=== PATIENT | female | born 1965 | race Two or more races ===

== ENCOUNTER 2016-11-19 09:39 | Day surgery (SDC) | payer OTHER ==
[2016-11-17 13:56] VITALS: BMI 27.4
[~2016-11-19 09:39] MED LIST: LACTATED RINGERS 1,000 ML IV SCH
[2016-11-19] MEDS ORDERED: LIDOCAINE 1% 20 ML VIAL (10MG/ML) FOR IV START SQ ONE (10:00)
[2016-11-19 10:07] VITALS: TEMP 98.8
[2016-11-19] MEDS ORDERED: PROPOFOL 10 MG/ML 20 ML VIAL IV ONE (10:36)
[2016-11-19] MEDS ORDERED: MIDAZOLAM 2 MG/2 ML VIAL ONE (10:36)
--- NOTE | 2016-11-19 10:53 | P.PCN ---
Date of Procedure: 11/19/16 Procedure(s) Performed: BRIEF HISTORY: Patient is a 51-year-old, pleasant, white female, scheduled for an upper endoscopy as a part of surveillance of Ohara's esophagus and GERD. Last upper endoscopy was done in February 2015 and she was noted to have Ohara's esophagus with low-grade dysplasia. She denies any dysphagia or odynophagia. PROCEDURE PERFORMED: Esophagogastroduodenoscopy with biopsy. PREOPERATIVE DIAGNOSIS: Surveillance of Ohara's esophagus. IV sedation per anesthesia. PROCEDURE: After informed consent was obtained, the patient was brought into the endoscopy unit. IV conscious sedation was administered by Anesthesia under continuous monitoring. Initially the Olympus GIF-140 video endoscope was inserted into the mouth. Esophagus intubated without any difficulty. It was gradually advanced into the stomach and duodenum and carefully examined. The bulb and the second part of the duodenum appeared normal. The scope at this time was withdrawn to the stomach, adequately insufflated with air, and upon careful examination, mucosa of the antrum, body, cardia and the fundus appeared normal. The scope was then withdrawn into the esophagus. Small hiatal hernia noted. The GE junction was located at 39 cm from the incisors. There were 2 tongues of Ohara's appearing mucosa extending 2 mm proximal to the GE junction and this was biopsied. The rest of the esophagus appeared normal. There were no erosions or ulcerations seen and the patient tolerated the procedure well. IMPRESSION: 1. 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 2. Small hiatal hernia. RECOMMENDATIONS: The findings of this examination were discussed with the patient as well as her family. She was advised to follow with the biopsy results. She will continue with Prilosec 20 mg daily and follow antireflux measures.If the biopsy does not show any evidence of dysplasia she can have a repeat upper endoscopy in 1-2 years.
[2016-11-19 10:56] VITALS: RESP 18
[2016-11-19 11:41] VITALS: BP 147/88; PULSE 67
== END 2016-11-19 11:41 | disposition home or self-care (01) ==
LOC: ORWHC2ENDO 09:39
PROVIDERS: ATTEND Internal Medicine Gastroenterology
DX: K22.70 Barrett's esophagus without dysplasia (principal); K44.9 Diaphragmatic hernia without obstruction or gangrene; K21.9 Gastro-esophageal reflux disease without esophagitis; Z79.899 Other long term (current) drug therapy; F17.200 Nicotine dependence, unspecified, uncomplicated
CPT/HCPCS: 88305; 43239; J2250; J2704

== ENCOUNTER → 2017-11-26 | Outpatient (CLI) | payer OTHER ==
--- NOTE | 2017-12-01 13:47 | MM ---
Reason for exam: screening (asymptomatic). Baseline mammogram. History: Patient is postmenopausal. Taking estrogen for 8 years beginning at age 44. Taking progesterone for 8 years beginning at age 44. Physical Findings: Nurse did not find any significant physical abnormalities on exam. MG Screening Mammo w CAD Bilateral CC and MLO view(s) were taken. There are scattered fibroglandular densities. No suspicious calcifications or masses are seen. There is no discrete abnormality. Intramammary lymph node on the left. These results were verbally communicated with the patient and result sheet given to the patient on 11/26/17. ASSESSMENT: Benign, BI-RAD 2 RECOMMENDATION: Routine screening mammogram of both breasts in 1 year.
== END | disposition home or self-care (01) ==
LOC: RADMAMWWP 11:00
PROVIDERS: ATTEND Family Medicine
DX: Z12.31 Encounter for screening mammogram for malignant neoplasm of breast (principal)
CPT/HCPCS: 77067

== ENCOUNTER 2019-01-14 08:39 | Day surgery (SDC) | payer OTHER ==
[2019-01-12 16:04] VITALS: BMI 27.4
[~2019-01-14 08:39] MED LIST changes: +LIDOCAINE 1% 20 ML VIAL (10MG/ML) FOR IV START INTRADERMA PRN
[2019-01-14 09:13] VITALS: RESP 16; TEMP 97.2
[2019-01-14] MEDS ORDERED: PROPOFOL 10 MG/ML 20 ML VIAL IV ONE (09:56)
[2019-01-14] MEDS ORDERED: LIDOCAINE 1% INJ 10MG/ML (20 ML MDV) ONE (09:56)
--- NOTE | 2019-01-14 10:06 | P.PCN ---
Date of Procedure: 01/14/19 Procedure(s) Performed: BRIEF HISTORY: Patient is a 53-year-old, pleasant, white female, scheduled for an upper endoscopy as a part of evaluation of long-standing history of GERD and Ohara's esophagus. She is on Prilosec 20 mg daily and continues to have epigastric discomfort almost on a daily basis with intermittent nausea vomiting.. PROCEDURE PERFORMED: Esophagogastroduodenoscopy with biopsy. PREOPERATIVE DIAGNOSIS: GERD/Ohara's esophagus. IV sedation per anesthesia. PROCEDURE: After informed consent was obtained, the patient was brought into the endoscopy unit. IV sedation was administered by Anesthesia under continuous monitoring. Initially the Olympus GIF-140 video endoscope was inserted into the mouth. Esophagus intubated without any difficulty. It was gradually advanced into the stomach and duodenum and carefully examined. The bulb and the second part of the duodenum appeared normal. The scope at this time was withdrawn to the stomach, adequately insufflated with air, and upon careful examination, mucosa of the antrum, body, cardia and the fundus appeared normal. The scope was then withdrawn into the esophagus. The GE junction was located at 36 cm from the incisors. Moderate size L hernia noted. There 2 small tongues of Ohara's appearing mucosa extending to 3 mm proximal to the GE junction and this was biopsied. The rest of the esophagus appeared normal. There were no erosions or ulcerations seen and the patient tolerated the procedure well. IMPRESSION: 1. 2 small tongues of Ohara's appearing mucosa proximal to the GE junction measuring 2-3 mm status post biopsy. 2. Small to moderate size hiatal hernia. RECOMMENDATIONS: The findings of this examination were discussed with the patient as well as a family. She was advised to follow with the biopsy results. She will increase omeprazole to 20 mg twice daily for 4 weeks because of ongoing epigastric pain and intermittent nausea vomiting and see if this helps resolve her symptoms. She can continue with current 20 mg daily for 4 GERD..
[2019-01-14 10:24] VITALS: BP 111/76; PULSE 68
== END 2019-01-14 11:24 | disposition home or self-care (01) ==
LOC: ORWHC2ENDO 08:39
PROVIDERS: ATTEND Internal Medicine Gastroenterology
DX: K22.70 Barrett's esophagus without dysplasia (principal); K21.9 Gastro-esophageal reflux disease without esophagitis; K44.9 Diaphragmatic hernia without obstruction or gangrene; I10 Essential (primary) hypertension; F17.200 Nicotine dependence, unspecified, uncomplicated; Z79.899 Other long term (current) drug therapy
CPT/HCPCS: 88305; 43239; J2001; J2704

== ENCOUNTER 2020-01-09 12:27 | Inpatient (IN) | payer OTHER ==
[2020-01-09] MEDS ORDERED: SODIUM CHLORIDE 0.9% 1,000 ML IV STA (12:40)
[2020-01-09] MEDS ORDERED: MORPHINE SULFATE 4 MG/ML SYRINGE IV STA (12:40)
[2020-01-09] MEDS ORDERED: ONDANSETRON 4 MG/2 ML VIAL IVP STA (12:40)
[2020-01-09] MEDS ORDERED: PANTOPRAZOLE 40 MG/10 ML VIAL IVP STA (12:40)
[2020-01-09] MEDS ORDERED: SODIUM CHLORIDE 0.9% 2,000 ML IV STA (12:40)
--- NOTE | 2020-01-09 12:51 | ED ---
Abdominal Pain HPI - General Source: family, RN notes reviewed, old records reviewed Mode of arrival: wheelchair Limitations: no limitations <Randi Caballero - Last Filed: 01/09/20 14:25> <Luis Marte - Last Filed: 01/09/20 14:32> - General Chief Complaint: Abdominal Pain Stated Complaint: nausea/cramping Time Seen by Provider: 01/09/20 12:34 - History of Present Illness Initial Comments: Patient is a 54-year-old female who presents emergency department today with 36 hours of nausea vomiting abdominal cramping. Patient reports symptoms started after eating a meal Thursday night and having some glasses of wine. Patient is here with her is doing most of the history for Patient she is retching. Patient complains of diffuse cramping. She does a history of Sales's esophagus which she has annual scoped by Dr. Lees. She states that she has had no recorded fevers or chills. She complains of cramping and spasming in her arms and legs likely related to dehydration. (Randi Caballero) - Related Data Home Medications Medication Instructions Recorded Confirmed Estradiol 0.5 mg PO DAILY 11/17/16 01/09/20 Omeprazole 20 mg PO DAILY 11/17/16 01/09/20 Lisinopril-Hctz 20-25 mg 1 tab PO DAILY 01/12/19 01/09/20 [Zestoretic 20-25] Atorvastatin [Lipitor] 10 mg PO HS 01/09/20 01/09/20 Medroxyprogesterone Acetate 5 mg PO DAILY 01/09/20 01/09/20 [Provera] Allergies Allergy/AdvReac Type Severity Reaction Status Date / Time No Known Allergies Allergy Verified 01/09/20 13:54 Review of Systems ROS Other: All systems not noted in ROS Statement are negative. <Randi Caballero - Last Filed: 01/09/20 14:25> ROS Other: All systems not noted in ROS Statement are negative. <Luis Marte - Last Filed: 01/09/20 14:32> ROS Statement: Those systems with pertinent positive or pertinent negative responses have been documented in the HPI. Past Medical History Past Medical History: GERD/Reflux, Hypertension Additional Past Medical History / Comment(s): SALES'S ESOPHAGUS. History of Any Multi-Drug Resistant Organisms: None Reported Past Surgical History: No Surgical Hx Reported Additional Past Surgical History / Comment(s): colonoscopy, egd Past Anesthesia/Blood Transfusion Reactions: No Reported Reaction Past Psychological History: No Psychological Hx Reported Smoking Status: Former smoker Past Alcohol Use History: Occasional Past Drug Use History: Marijuana - Past Family History Father Family Medical History: Cancer Additional Family Medical History / Comment(s): MULTIPLE MELANOMA Sister(s) Family Medical History: Deep Vein Thrombosis (DVT) Additional Family Medical History / Comment(s): BLOOD CLOT IN ARM Brother(s) Family Medical History: Liver Disease Additional Family Medical History / Comment(s): RECENT FROM ESOPHAGEAL VARICES, CIRRHOSIS. <Randi Caballero - Last Filed: 01/09/20 14:25> General Exam Limitations: no limitations General appearance: alert Head exam: Present: atraumatic, normocephalic, normal inspection Eye exam: Present: normal appearance, PERRL, EOMI. Absent: scleral icterus, conjunctival injection, periorbital swelling ENT exam: Present: normal exam, mucous membranes moist Neck exam: Present: normal inspection. Absent: tenderness, meningismus, lymphadenopathy Respiratory exam: Present: normal lung sounds bilaterally. Absent: respiratory distress, wheezes, rales, rhonchi, stridor Cardiovascular Exam: Present: regular rate, normal rhythm, normal heart sounds. Absent: systolic murmur, diastolic murmur, rubs, gallop, clicks GI/Abdominal exam: Present: soft, tenderness (Diffuse abdominal tenderness), n ormal bowel sounds. Absent: distended, guarding, rebound, rigid Extremities exam: Present: normal inspection, full ROM, normal capillary refill. Absent: tenderness, pedal edema, joint swelling, calf tenderness Back exam: Present: normal inspection Neurological exam: Present: alert, oriented X3, CN II-XII intact Psychiatric exam: Present: normal affect, normal mood Skin exam: Present: warm, dry, intact, normal color. Absent: rash <Randi Caballero - Last Filed: 01/09/20 14:25> - General Exam Comments Initial Comments: 54-year-old female. Patient appears in moderate discomfort. Retching. ( Randi Caballero) Course <Luis Marte - Last Filed: 01/09/20 14:32> Vital Signs 01/09/20 12:30 Temperature 98.2 F Pulse Rate 117 H Respiratory 18 Rate Blood Pressure 118/90 O2 Sat by Pulse 98 Oximetry - Reevaluation(s) Reevaluation #1: 01/09/20 14:32 PA supervision: I proceeded [id number] evaluation the patient she did present with complaints of abdominal pain and nausea vomiting going on for about 2 days. She does have evidence on workup of gastritis I CAT scan no other acute findings however she does have acute kidney injury dehydration and lactic acidosis likely on the basis of dehydration. The case is discussed with Dr. Falk patient will be admitted for IV hydration and monitoring of renal function. (Luis Marte) Medical Decision Making - Lab Data Result diagrams: 01/09/20 12:58 01/09/20 12:58 <Randi Caballero - Last Filed: 01/09/20 14:25> - Lab Data Result diagrams: 01/09/20 12:58 01/09/20 12:58 <Luis Marte - Last Filed: 01/09/20 14:32> - Medical Decision Making 54-year-old female with history of present. Presents today for nausea vomiting and retching for the past 36 hours. She also complains of diffuse cramping abdominal pain. Patient was given IV fluids, Zofran and Protonix and morphine for pain. Patient's lab work was reviewed. Evidence of leukocytosis of 21,000. Patient also has significantly decline in her kidney function.With a BUN of 60. Creatinine of 4.92. Her lactic acid is 2.6. Liver function tests are within normal limits. Due to leukocytosis and symptoms Patient had a CT abdomen and pelvis without contrast. There is evidence of some gastritis and cysts were noted on the kidney. Patient was informed of these results. She is feeling better after IV fluids and medication. I discussed the case with Dr. Marte whom discussed with Dr. Falk. At this time we've her lab values are reflective from gastritis, and severe nausea vomiting. After fluids repeat lab work will be completed tomorrow. No need for further consult at this time. (Randi Caballero) - Lab Data Lab Results 01/09/20 01/09/20 01/09/20 Range/Units 12:58 12:58 12:58 WBC 21.9 H (3.8-10.6) k/uL RBC 5.04 (3.80-5.40) m/uL Hgb 16.1 H (11.4-16.0) gm/dL Hct 44.9 (34.0-46.0) % MCV 89.1 (80.0-100.0) fL MCH 32.0 (25.0-35.0) pg MCHC 36.0 (31.0-37.0) g/dL RDW 12.4 (11.5-15.5) % Plt Count 464 H (150-450) k/uL Neutrophils % 89 % Lymphocytes % 7 % Monocytes % 2 % Eosinophils % 1 % Basophils % 0 % Neutrophils # 19.5 H (1.3-7.7) k/uL Lymphocytes # 1.6 (1.0-4.8) k/uL Monocytes # 0.5 (0-1.0) k/uL Eosinophils # 0.2 (0-0.7) k/uL Basophils # 0.0 (0-0.2) k/uL PT 10.2 (9.0-12.0) sec INR 1.0 (<1.2) APTT 22.4 (22.0-30.0) sec Sodium 130 L (137-145) mmol/L Potassium 4.3 (3.5-5.1) mmol/L Chloride 80 L (98-107) mmol/L Carbon Dioxide 21 L (22-30) mmol/L Anion Gap 29 mmol/L BUN 60 H (7-17) mg/dL Creatinine 4.92 H (0.52-1.04) mg/dL Est GFR (CKD-EPI)AfAm 11 (>60 ml/min/1.73 sqM) Est GFR (CKD-EPI)NonAf 9 (>60 ml/min/1.73 sqM) Glucose 154 H (74-99) mg/dL Plasma Lactic Acid Duc (0.7-2.0) mmol/L Calcium 10.9 H (8.4-10.2) mg/dL Magnesium 1.6 (1.6-2.3) mg/dL Total Bilirubin 0.7 (0.2-1.3) mg/dL AST 44 H (14-36) U/L ALT 33 (4-34) U/L Alkaline Phosphatase 102 (38-126) U/L Total Protein 9.8 H (6.3-8.2) g/dL Albumin 6.0 H (3.5-5.0) g/dL Amylase 135 H (30-110) U/L Lipase 121 (23-300) U/L 01/09/20 Range/Units 12:58 WBC (3.8-10.6) k/uL RBC (3.80-5.40) m/uL Hgb (11.4-16.0) gm/dL Hct (34.0-46.0) % MCV (80.0-100.0) fL MCH (25.0-35.0) pg MCHC (31.0-37.0) g/dL RDW (11.5-15.5) % Plt Count (150-450) k/uL Neutrophils % % Lymphocytes % % Monocytes % % Eosinophils % % Basophils % % Neutrophils # (1.3-7.7) k/uL Lymphocytes # (1.0-4.8) k/uL Monocytes # (0-1.0) k/uL Eosinophils # (0-0.7) k/uL Basophils # (0-0.2) k/uL PT (9.0-12.0) sec INR (<1.2) APTT (22.0-30.0) sec Sodium (137-145) mmol/L Potassium (3.5-5.1) mmol/L Chloride (98-107) mmol/L Carbon Dioxide (22-30) mmol/L Anion Gap mmol/L BUN (7-17) mg/dL Creatinine (0.52-1.04) mg/dL Est GFR (CKD-EPI)AfAm (>60 ml/min/1.73 sqM) Est GFR (CKD-EPI)NonAf (>60 ml/min/1.73 sqM) Glucose (74-99) mg/dL Plasma Lactic Acid Duc 2.6 H* (0.7-2.0) mmol/L Calcium (8.4-10.2) mg/dL Magnesium (1.6-2.3) mg/dL Total Bilirubin (0.2-1.3) mg/dL AST (14-36) U/L ALT (4-34) U/L Alkaline Phosphatase (38-126) U/L Total Protein (6.3-8.2) g/dL Albumin (3.5-5.0) g/dL Amylase (30-110) U/L Lipase (23-300) U/L Disposition Is patient prescribed a controlled substance at d/c from ED?: No Time of Disposition: 14:29 <Randi Caballero - Last Filed: 01/09/20 14:25> <Luis Marte - Last Filed: 01/09/20 14:32> Clinical Impression: Gastritis, TAMMY (acute kidney injury), Dehydration, Nausea & vomiting, Leuk ocytosis Disposition: ADMITTED IP TO THIS HOSP Condition: Stable Referrals: Marian Frias III, MD [Primary Care Provider] - 1-2 days
[2020-01-09 13:17] LABS: Basophils % (A) 0 %; Eosinophils # (A) 0.2 k/uL (0-0.7); Eosinophils % (A) 1 %; HCT 44.9 % (34.0-46.0); HGB 16.1 gm/dL (11.4-16.0); Lymphocytes # (A) 1.6 k/uL (1.0-4.8); Lymphocytes % (A) 7 %; MCV 89.1 fL (80.0-100.0); Monocytes # (A) 0.5 k/uL (0-1.0); Monocytes % (A) 2 %; Neutrophils # (A) 19.5 k/uL (1.3-7.7); Neutrophils % (A) 89 %; Platelet Count 464 k/uL (150-450); RBC 5.04 m/uL (3.80-5.40); RDW 12.4 % (11.5-15.5); WBC 21.9 k/uL (3.8-10.6)
[2020-01-09 13:20] LABS: Partial Thromboplastin Time 22.4 sec (22.0-30.0); Prothrombin Time 10.2 sec (9.0-12.0)
[2020-01-09 13:22] LABS: Calcium 10.9 mg/dL (8.4-10.2); Magnesium 1.6 mg/dL (1.6-2.3); Potassium 4.3 mmol/L (3.5-5.1); Total Bilirubin 0.7 mg/dL (0.2-1.3); Total Protein 9.8 g/dL (6.3-8.2)
--- NOTE | 2020-01-09 13:40 | XR ---
EXAMINATION TYPE: XR KUB DATE OF EXAM: 01/09/2020 Comparison: None Clinical History: 54-year-old female abdominal pain Findings: Lung bases are clear. No evidence for free intraperitoneal air. No dilated small bowel or air-fluid levels. Minimal stool burden. Air is present throughout the colon extending distally to the rectum. No suspicious calcifications are seen. Impression: No evidence for free air or bowel obstruction. Minimal stool burden.
--- NOTE | 2020-01-09 14:03 | CT ---
EXAMINATION TYPE: CT abdomen pelvis wo con DATE OF EXAM: 01/09/2020 COMPARISON: Radiograph same day HISTORY: 54-year-old female Abdominal pain, vomiting, renal failure CT DLP: 556.6 mGycm. Automated exposure control for dose reduction was used. TECHNIQUE: Contiguous axial scanning of the abdomen and pelvis without IV contrast. Coronal and sagit mireya reconstructions performed. FINDINGS: LUNG BASES: No significant abnormality is appreciated. LIVER/GB: Liver mildly enlarged at 18.1 cm. There is an 8 mm hypodensity left hepatic dome likely a t iny cyst. Otherwise, noncontrast appearance of the liver and gallbladder show no gross anomaly. PANCREAS: No significant abnormality by noncontrast exam. SPLEEN: No significant abnormality by noncontrast exam. ADRENALS: No significant abnormality by noncontrast exam. KIDNEYS: A benign 2.7 cm cortical cyst right kidney. A couple indeterminate, partially exophytic soft tissue attenuating lesions are present in the left kidney measuring 1.3 cm and 1.1 cm. These warrant follow-up, possible complicated cyst versus small solid masses. BOWEL: No dilated small bowel, free fluid, or free air. There seems to be some fold thickening along the fundus and body of the stomach. Appendix not discretely visualized. No secondary findings of acu te appendicitis in the right lower quadrant. Sigmoid diverticulosis. No pericolonic inflammatory johnson ge. LYMPH NODES: No mesenteric or retroperitoneal lymphadenopathy. Mild atherosclerotic calcifications in frarenal abdominal aorta and common iliac arteries. PELVIS: Nondistention of the bladder limits its evaluation. Uterus is visualized. Suspect visualizati on of small bilateral ovaries. No abnormal fluid collection in the pelvis or pelvic lymphadenopathy. BONES: Degenerative changes at the pubic symphysis and hips. Mild facet arthropathy lower lumbar spin e. IMPRESSION: 1. Moderate fold thickening along the gastric fundus and body. Correlate for possible gastritis. Dir ect visualization as indicated. 2. A couple indeterminate cortical lesion left kidney showing soft tissue attenuation measuring 1.3 and 1.1 cm, complicated cysts versus small solid masses. Three-month follow-up contrast enhanced CT r ecommended to reassess. 3. No nephrolithiasis or hydronephrosis.
[2020-01-09] MEDS ORDERED: Acetaminophen-Codeine 300-30mg TAB PO PRN (14:29)
[2020-01-09] MEDS ORDERED: ACETAMINOPHEN TAB 325 MG TAB PO PRN (14:29)
[2020-01-09] MEDS ORDERED: NALOXONE 0.4 MG/ML 1 ML VIAL IV PRN (14:29)
--- NOTE | 2020-01-09 14:34 | ED ---
Medical Decision Making - Lab Data Result diagrams: 01/09/20 12:58 01/09/20 12:58 Lab Results 01/09/20 01/09/20 01/09/20 Range/Units 12:58 12:58 12:58 WBC 21.9 H (3.8-10.6) k/uL RBC 5.04 (3.80-5.40) m/uL Hgb 16.1 H (11.4-16.0) gm/dL Hct 44.9 (34.0-46.0) % MCV 89.1 (80.0-100.0) fL MCH 32.0 (25.0-35.0) pg MCHC 36.0 (31.0-37.0) g/dL RDW 12.4 (11.5-15.5) % Plt Count 464 H (150-450) k/uL Neutrophils % 89 % Lymphocytes % 7 % Monocytes % 2 % Eosinophils % 1 % Basophils % 0 % Neutrophils # 19.5 H (1.3-7.7) k/uL Lymphocytes # 1.6 (1.0-4.8) k/uL Monocytes # 0.5 (0-1.0) k/uL Eosinophils # 0.2 (0-0.7) k/uL Basophils # 0.0 (0-0.2) k/uL PT 10.2 (9.0-12.0) sec INR 1.0 (<1.2) APTT 22.4 (22.0-30.0) sec Sodium 130 L (137-145) mmol/L Potassium 4.3 (3.5-5.1) mmol/L Chloride 80 L (98-107) mmol/L Carbon Dioxide 21 L (22-30) mmol/L Anion Gap 29 mmol/L BUN 60 H (7-17) mg/dL Creatinine 4.92 H (0.52-1.04) mg/dL Est GFR (CKD-EPI)AfAm 11 (>60 ml/min/1.73 sqM) Est GFR (CKD-EPI)NonAf 9 (>60 ml/min/1.73 sqM) Glucose 154 H (74-99) mg/dL Plasma Lactic Acid Duc (0.7-2.0) mmol/L Calcium 10.9 H (8.4-10.2) mg/dL Magnesium 1.6 (1.6-2.3) mg/dL Total Bilirubin 0.7 (0.2-1.3) mg/dL AST 44 H (14-36) U/L ALT 33 (4-34) U/L Alkaline Phosphatase 102 (38-126) U/L Total Protein 9.8 H (6.3-8.2) g/dL Albumin 6.0 H (3.5-5.0) g/dL Amylase 135 H (30-110) U/L Lipase 121 (23-300) U/L 01/09/20 Range/Units 12:58 WBC (3.8-10.6) k/uL RBC (3.80-5.40) m/uL Hgb (11.4-16.0) gm/dL Hct (34.0-46.0) % MCV (80.0-100.0) fL MCH (25.0-35.0) pg MCHC (31.0-37.0) g/dL RDW (11.5-15.5) % Plt Count (150-450) k/uL Neutrophils % % Lymphocytes % % Monocytes % % Eosinophils % % Basophils % % Neutrophils # (1.3-7.7) k/uL Lymphocytes # (1.0-4.8) k/uL Monocytes # (0-1.0) k/uL Eosinophils # (0-0.7) k/uL Basophils # (0-0.2) k/uL PT (9.0-12.0) sec INR (<1.2) APTT (22.0-30.0) sec Sodium (137-145) mmol/L Potassium (3.5-5.1) mmol/L Chloride (98-107) mmol/L Carbon Dioxide (22-30) mmol/L Anion Gap mmol/L BUN (7-17) mg/dL Creatinine (0.52-1.04) mg/dL Est GFR (CKD-EPI)AfAm (>60 ml/min/1.73 sqM) Est GFR (CKD-EPI)NonAf (>60 ml/min/1.73 sqM) Glucose (74-99) mg/dL Plasma Lactic Acid Duc 2.6 H* (0.7-2.0) mmol/L Calcium (8.4-10.2) mg/dL Magnesium (1.6-2.3) mg/dL Total Bilirubin (0.2-1.3) mg/dL AST (14-36) U/L ALT (4-34) U/L Alkaline Phosphatase (38-126) U/L Total Protein (6.3-8.2) g/dL Albumin (3.5-5.0) g/dL Amylase (30-110) U/L Lipase (23-300) U/L 01/09/20 14:32 EKG performed at 1306 shows sinus tachycardia, otherwise normal EKG. Ventricular rate of 105 beats were minute. Intervals 120 ms. QRS duration 70 ms. QT QTc is 3:30/436 ms. - Radiology Data Radiology results: report reviewed X-ray shows no evidence for free air or bowel obstruction. Minimal stool burn. CT shows moderate full thickening on the gastric fundus and body. The area according for gastritis. Direct visualization as indicated. A couple indeterminate lesions on the left kidney showing soft tissue attenuation measuring 1.3 x 1.1 cm., Located cyst versus small solid masses read follow-up in [address] to reassess. No nephrolithiasis or hydronephrosis. Disposition Clinical Impression: Gastritis, TAMMY (acute kidney injury), Dehydration, Nausea & vomiting, Leukocytosis Disposition: ADMITTED IP TO THIS HOSP Condition: Stable Is patient prescribed a controlled substance at d/c from ED?: No Referrals: Marian Frias III, MD [Primary Care Provider] - 1-2 days
[2020-01-09] MEDS: ONDANSETRON 4 MG/2 ML VIAL IVP PRN ×2 (14:53→23:53)
[2020-01-09] MEDS: SODIUM CHLORIDE 0.9% 1,000 ML IV SCH ×2 (15:36→22:20)
[2020-01-09 18:16] LABS: Appearance,Urine Cloudy (Clear); Bacteria,Urine Rare /hpf; Bilirubin,Urine Negative (Negative); Blood,Urine Moderate (Negative); Color,Urine Yellow; Glucose,Urine (UA) Negative (Negative); Hyaline Casts,Urine 12 /lpf (0-2); Ketones,Urine Negative (Negative); Leukocyte Esterase,Urine Negative (Negative); Mucus,Urine Occasional /hpf; Nitrite,Urine Negative (Negative); PH, Urine 5.5 (5.0-8.0); Protein,Urine 1+ (Negative); RBC,Urine <1 /hpf (0-5); Specific Gravity,Urine 1.014 (1.001-1.035); Squamous Epithelial Cell,Urine 1 /hpf (0-4); Urobilinogen,Urine <2.0 mg/dL (<2.0); WBC,Urine 4 /hpf (0-5)
[2020-01-09] MEDS: ATORVASTATIN 10 MG TAB PO SCH (21:48)
--- NOTE | 2020-01-09 22:39 | P.HPIM ---
History of Present Illness H&P Date: 01/09/20 Chief Complaint: Nausea and vomiting Patient is a 54-year-old female with a known history of Sales's esophagus, GERD, hiatal hernia, hypertension and previous history of smoking came to ER with the complaints of nausea vomiting and epigastric abdominal pain/cramping for the past 36 hours prior to coming to ER.Patient reports symptoms started after eating a meal Thursday night and having some glasses of wine. Patient is having abdominal pain mainly in the epigastric region. No radiation of the pain. Does have nausea and episodes of vomiting. No blood and intermittent emesis. No melena. Denied any diarrhea. No cough or sputum production. No fever no chills. No dysuria or hematuria. She is also complaining of cramping and spasms in her arms and legs. Abdominal x-ray showed no evidence of free air. Minimal stool burden. CT of the abdomen pelvis showed moderate full thickening on the gastric fundus and body. Correlate for gastritis. A couple indeterminate lesions on the left kidney showing soft tissue attenuation measuring 1.3 x 1.1 cm., Located cyst versus small solid masses read follow-up in [address] to reassess. No nephrolithiasis or h ydronephrosis. EKG showed sinus tachycardia. WBC 21.9, sodium 1:30, chloride 80, BUN 60, creatinine 4.92 , lactic acid 2.6 and calcium 10.9 UA negative for infection. Review of Systems Constitutional: Patient denies any fever or chills . No generalized weakness and cramps.. Abdomen: Patient does have nausea vomiting and abdominal pain cramping type. No diarrhea.. Cardiovascular: Patient denies any chest pain or short of breath no palpitations. Respiratory: patient denied any cough is from production. No shortness of breath Neurologic: Patient denied any numbness or tingling headache. Musculoskeletal: Patient denies any complaints of joint swelling or deformity. Skin: Negative Psychiatric: Negative Endocrine: No heat or cold intolerance. No recent weight gain. Genitourinary: No dysuria or hematuria. All other 14 point ROS negative except the above Past Medical History Past Medical History: GERD/Reflux, Hypertension Additional Past Medical History / Comment(s): SALES'S ESOPHAGUS, HIATAL HERNIA, PAST HTN BUT NO LONGER ON MEDICATION SINCE WT LOSS AND QUIT SMOKING. History of Any Multi-Drug Resistant Organisms: None Reported Past Surgical History: No Surgical Hx Reported Additional Past Surgical History / Comment(s): colonoscopy, egds Past Anesthesia/Blood Transfusion Reactions: No Reported Reaction Smoking Status: Former smoker - Past Family History Father Family Medical History: Cancer Additional Family Medical History / Comment(s): MULTIPLE MELANOMA Sister(s) Family Medical History: Deep Vein Thrombosis (DVT) Additional Family Medical History / Comment(s): BLOOD CLOT IN ARM Brother(s) Family Medical History: Liver Disease Additional Family Medical History / Comment(s): TWIN BROTHER FROM ESOPHAGEAL VARICES, CIRRHOSIS. Medications and Allergies Home Medications Medication Instructions Recorded Confirmed Type Estradiol 0.5 mg PO DAILY 11/17/16 01/09/20 History Omeprazole 20 mg PO DAILY 11/17/16 01/09/20 History Lisinopril-Hctz 20-25 mg 1 tab PO DAILY 01/12/19 01/09/20 History [Zestoretic 20-25] Atorvastatin [Lipitor] 10 mg PO HS 01/09/20 01/09/20 History Medroxyprogesterone Acetate 5 mg PO DAILY 01/09/20 01/09/20 History [Provera] Allergies Allergy/AdvReac Type Severity Reaction Status Date / Time No Known Allergies Allergy Verified 01/09/20 13:54 Physical Exam Vitals: Vital Signs Temp Pulse Pulse Resp BP BP Pulse Ox 01/09/20 16:00 16 01/09/20 15:20 98.4 F 92 16 129/84 99 01/09/20 14:47 99.2 F 97 18 126/75 99 01/09/20 12:30 98.2 F 117 H 18 118/90 98 Intake and Output 01/09/20 01/09/20 01/09/20 06:59 14:59 22:59 Intake Total 1180 Balance 1180 Intake: Oral 1180 Other: Voiding Method Toilet # Voids 2 Weight 72.575 kg 72.575 kg PHYSICAL EXAMINATION: Patient is lying in the bed comfortably, no acute distress, awake alert and oriented.. HEENT: Normocephalic. Neck is supple. Pupils reactive. Nostrils clear. Oral cavity is moist. Ears reveal no drainage. Neck reveals no JVD, carotid bruits, or thyromegaly. CHEST EXAMINATION: Trachea is central. Symmetrical expansion. Lung christensen clear to auscultation and percussion. CARDIAC: Normal S1, S2 with no gallops. No murmurs ABDOMEN: Soft. Mild epigastric tenderness. Bowel sounds normal. No organomegaly. No abdominal bruits. Extremities: reveal no edema. No clubbing or cyanosis Neurologically awake, alert, oriented x3 with well-coordinated movements. No focal deficits noted Skin: No rash or skin lesions. Psychiatric: Coperative. Nonsuicidal Musculoskeletal: No joint swelling or deformity. Normal range of motion. Results CBC & Chem 7: 01/09/20 12:58 01/09/20 12:58 Labs: Abnormal Lab Results - Last 24 Hours (Table) 01/09/20 01/09/20 01/09/20 Range/Units 12:58 12:58 12:58 WBC 21.9 H (3.8-10.6) k/uL Hgb 16.1 H (11.4-16.0) gm/dL Plt Count 464 H (150-450) k/uL Neutrophils # 19.5 H (1.3-7.7) k/uL Sodium 130 L (137-145) mmol/L Chloride 80 L (98-107) mmol/L Carbon Dioxide 21 L (22-30) mmol/L BUN 60 H (7-17) mg/dL Creatinine 4.92 H (0.52-1.04) mg/dL Glucose 154 H (74-99) mg/dL Plasma Lactic Acid Duc 2.6 H* (0.7-2.0) mmol/L Calcium 10.9 H (8.4-10.2) mg/dL AST 44 H (14-36) U/L Total Protein 9.8 H (6.3-8.2) g/dL Albumin 6.0 H (3.5-5.0) g/dL Amylase 135 H (30-110) U/L Urine Appearance (Clear) Urine Protein (Negative) Urine Blood (Negative) Urine Bacteria (None) /hpf Hyaline Casts (0-2) /lpf Urine Mucus (None) /hpf 01/09/20 01/09/20 Range/Units 17:05 17:45 WBC (3.8-10.6) k/uL Hgb (11.4-16.0) gm/dL Plt Count (150-450) k/uL Neutrophils # (1.3-7.7) k/uL Sodium (137-145) mmol/L Chloride (98-107) mmol/L Carbon Dioxide (22-30) mmol/L BUN (7-17) mg/dL Creatinine (0.52-1.04) mg/dL Glucose (74-99) mg/dL Plasma Lactic Acid Duc 0.6 L (0.7-2.0) mmol/L Calcium (8.4-10.2) mg/dL AST (14-36) U/L Total Protein (6.3-8.2) g/dL Albumin (3.5-5.0) g/dL Amylase (30-110) U/L Urine Appearance Cloudy H (Clear) Urine Protein 1+ H (Negative) Urine Blood Moderate H (Negative) Urine Bacteria Rare H (None) /hpf Hyaline Casts 12 H (0-2) /lpf Urine Mucus Occasional H (None) /hpf Thrombosis Risk Factor Assmnt - DVT/VTE Prophylaxis DVT/VTE Prophylaxis: Pharmacologic Prophylaxis ordered - Choose All That Apply Any of the Below Risk Factors Present?: Yes Each Factor Represents 1 point: Age 41-60 years, Obesity (BMI >25) Other Risk Factors: No Other congenital or acquired thrombophilia - If yes, enter type in comment: No Thrombosis Risk Factor Assessment Total Risk Factor Score: 2 Thrombosis Risk Factor Assessment Level: Low Risk Assessment and Plan Assessment: Intractable nausea vomiting and abdominal pain secondary to acute severe gastritis Acute kidney injury was likely prerenal possible ATN Hypovolemic hyponatremia Leukocytosis likely reactive. Rule out infection. Lactic acidosis secondary to tissue hypoperfusion improved now Mild hypercalcemia due to dehydration History of hypertension History of Sales's esophagus and GERD Hiatal hernia Previous history of smoking DVT prophylaxis Plan: Patient will be continued on IV Protonix and symptomatic management for nausea and vomiting. Continue with IV hydration and follow-up renal function tomorrow. Further recommendations based on the clinical course. Continue to follow closely. Time with Patient: Greater than 30
[2020-01-10] MEDS: MORPHINE SULFATE 4 MG/ML SYRINGE IV PRN ×2 (05:34→13:14)
[2020-01-10] MEDS: SODIUM CHLORIDE 0.9% 1,000 ML IV SCH ×3 (06:05→20:58)
[2020-01-10 07:13] LABS: Calcium 9.1 mg/dL (8.4-10.2); Potassium 3.9 mmol/L (3.5-5.1)
[2020-01-10 07:40] LABS: Basophils % (A) 0 %; Eosinophils % (A) 0 %; HCT 37.2 % (34.0-46.0); Lymphocytes # (A) 1.6 k/uL (1.0-4.8); Lymphocytes % (A) 11 %; MCH 31.9 pg (25.0-35.0); MCHC 34.6 g/dL (31.0-37.0); MCV 92.3 fL (80.0-100.0); Mean Platelet Volume 7.9; Monocytes # (A) 0.6 k/uL (0-1.0); Monocytes % (A) 4 %; Neutrophils # (A) 11.5 k/uL (1.3-7.7); Neutrophils % (A) 83 %; Platelet Count 274 k/uL (150-450); RBC 4.03 m/uL (3.80-5.40); RDW 12.4 % (11.5-15.5); WBC 13.8 k/uL (3.8-10.6)
[2020-01-10 07:50] LABS: HGB 12.9 gm/dL (11.4-16.0)
[2020-01-10] MEDS: ESTRADIOL 0.5 MG TAB PO SCH (08:27)
[2020-01-10] MEDS ORDERED: PANTOPRAZOLE 40 MG/10 ML VIAL IV SCH (09:00)
[2020-01-10] MEDS ORDERED: LISINOPRIL-HCTZ 20-25 MG 1 EACH TAB PO SCH (09:00)
--- NOTE | 2020-01-10 09:03 | US ---
EXAMINATION TYPE: US kidneys/renal and bladder DATE OF EXAM: 01/10/2020 COMPARISON: NONE CLINICAL HISTORY: 54-year-old female TAMMY. TECHNIQUE: Multiple sonographic images of the kidneys and bladder are obtained. FINDINGS: EXAM MEASUREMENTS: Right Kidney: 10.3 x 4.6 x 5.4 cm Left Kidney: 10.2 x 5.3 x 4.5 cm Right Kidney: inferior cyst measuring 2.5 x 2.2 x 2.2cm Left Kidney: 2 probable exophytic cysts in the lower pole measuring 1.1 and 1.0 cm. The saved images show a rounded 2.8 cm isodense area at the mid pole, either prominent cortical tissue or mass. No hydronephrosis on either side. Bladder: Underdistention limits its evaluation. Bilateral Jets seen: No IMPRESSION: 1. No hydronephrosis. 2. Either a column of Todd versus a 2.8 cm solid mass within the midpole of the left kidney. Not ap parent on the recent noncontrast CT. 3 month follow-up contrast enhanced CT recommended to assess thi s region. 3. The other lesions seen on CT are compatible with benign cysts.
[2020-01-10 14:51] VITALS: BMI 28.1
[2020-01-10] MEDS: ATORVASTATIN 10 MG TAB PO SCH (20:57)
[2020-01-10] MEDS: PANTOPRAZOLE 40 MG/10 ML VIAL IV SCH (20:58)
[2020-01-10] MEDS: ONDANSETRON 4 MG/2 ML VIAL IVP PRN (21:01)
[2020-01-11] MEDS: SODIUM CHLORIDE 0.9% 1,000 ML IV SCH ×2 (05:16→15:18)
[2020-01-11] MEDS: ESTRADIOL 0.5 MG TAB PO SCH (08:44)
[2020-01-11] MEDS: PANTOPRAZOLE 40 MG/10 ML VIAL IV SCH (08:44)
[2020-01-11] MEDS: ONDANSETRON 4 MG/2 ML VIAL IVP PRN (09:38)
[2020-01-11 12:44] VITALS: BP 138/78; PULSE 72; RESP 16; TEMP 98.8
--- NOTE | 2020-01-12 08:43 | CDI ---
Documentation Clarification Form Date: 01/12/2020 08:27:21 AM From: Alize Almendarez Phone: If you have a question about this query, please contact Ana Vela [facility] at [phone] between 8am and 5pm. Admit Date: 01/09/2020 02:20:00 PM Patient Name: Maria G Lam Visit Number: [id number] Discharge Date: 01/11/2020 03:22:00 PM ATTENTION: The Clinical Documentation Specialists (CDI) and [facility] Coding Staff appreciate your assistance in clarifying documentation. Please respond to the clarification below the line at the bottom and electronically sign. The CDI & [facility] Coding staff will review the response and follow-up if needed. Please note: Queries are made part of the Legal Health Record. If you have any questions, please contact the author of this message via ITS. Dr. Deepali Falk Acute kidney injury was likely prerenal possible ATN was documented in the H and P. No documentation to follow please clarify if at time of discharge ATN was possible. History/Risk Factors: dehydrated, elevated lactic acidosis, hypercalcemia Patients baseline BUN/CR/GFR: 60 4.92 GFR on admit 9 Clinical Indicators: dehyration Current BUN/Cr/GFR: 01/09 BUN 37 Creat 1.64 GFR 35 Treatment: IV hydration and follow up of renal functio In order to capture the severity of condition, please clarify if the condition signifies: Acute renal failure, Please specify etiology (if known): Cortical Necrosis Medullary Necrosis Tubular Necrosis Acute kidney injury Other please specify Unable to determine Acute kidney injury MTDD
== END 2020-01-11 15:22 | disposition home or self-care (01) | DRG 392 ==
LOC: EC 12:27 → 6NMEDSUR 14:20
PROVIDERS: ADMIT Internal Medicine; ATTEND Internal Medicine
DX: K29.00 Acute gastritis without bleeding (principal); E87.2 Acidosis; N17.9 Acute kidney failure, unspecified; E87.1 Hypo-osmolality and hyponatremia; K44.9 Diaphragmatic hernia without obstruction or gangrene; D72.829 Elevated white blood cell count, unspecified; E83.52 Hypercalcemia; E86.0 Dehydration; I10 Essential (primary) hypertension; K22.70 Barrett's esophagus without dysplasia; Z79.899 Other long term (current) drug therapy; Z80.8 Family history of malignant neoplasm of other organs or systems; Z87.891 Personal history of nicotine dependence; Z80.7 Family history of other malignant neoplasms of lymphoid, hematopoietic and related tissues; Z83.2 Family history of diseases of the blood and blood-forming organs and certain disorders involving the immune mechanism; Z83.79 Family history of other diseases of the digestive system
CPT/HCPCS: 36415; 74018; 74176; 76770; 80048; 80053; 81001; 82150; 83605; 83690; 83735; 85025; 85610; 85730; 93005; 96361; 96374; 96375; 96376; 99285

== ENCOUNTER → 2020-07-27 | Outpatient (CLI) | payer OTHER ==
--- NOTE | 2020-07-27 17:08 | CT ---
EXAMINATION TYPE: CT abdomen w con DATE OF EXAM: 07/27/2020 COMPARISON: CT abdomen pelvis 01/09/2020. Ultrasound kidneys 01/10/2020. HISTORY: Abnormal CT findings CT DLP: 770.6 mGycm Automated exposure control for dose reduction was used. TECHNIQUE: Helical acquisition of images was performed from the lung bases through the top of iliac crest to include entire abdomen. CONTRAST: Performed with Oral Contrast and with IV Contrast, patient injected with 100 mL of Isovue 300. FINDINGS: LUNG BASES: Normal. LIVER: Too small to characterize hypodense lesion at the dome (3:8). BILIARY SYSTEM: Normal. PANCREAS: Normal. SPLEEN: Normal. ADRENALS: Normal. KIDNEYS: Bilateral renal cysts redemonstrated. No evidence of solid renal mass. No hydronephrosis. BOWEL: No obstruction or thickening. PERITONEUM: No pneumoperitoneum. No free fluid. LYMPH NODES: No lymphadenopathy. VASCULATURE: No abdominal aortic aneurysm. MUSCULOSKELETAL: Degenerative changes of the spine. IMPRESSION: Unchanged bilateral renal simple cysts. Questioned findings on 12/31/2019 renal ultrasound represent violeta Holland. No evidence of solid renal mass.
== END | disposition home or self-care (01) ==
LOC: RADCTMAIN 14:28
PROVIDERS: ATTEND Nurse Practitioner Family
DX: N28.1 Cyst of kidney, acquired (principal)
CPT/HCPCS: 74160; Q9967

== ENCOUNTER 2022-01-03 11:47 | Day surgery (SDC) | payer OTHER ==
[2022-01-02 14:09] VITALS: BMI 26.6
[~2022-01-03 11:47] MED LIST changes: +LIDOCAINE 1% (10MG/ML) FOR IV START INTRADERMA PRN; -LIDOCAINE 1% 20 ML VIAL (10MG/ML) FOR IV START INTRADERMA PRN
[2022-01-03 12:32] VITALS: TEMP 99.6
[2022-01-03] MEDS ORDERED: LIDOCAINE 1% INJ 10MG/ML (20 ML MDV) ONE (13:36)
[2022-01-03] MEDS ORDERED: PROPOFOL 10 MG/ML 20 ML VIAL IV ONE (13:36)
--- NOTE | 2022-01-03 14:01 | P.PCN ---
Date of Procedure: 01/03/22 Procedure(s) Performed: Brief history: Patient is a pleasant 56-year-old white female scheduled for an elective upper endoscopy as well as colonoscopy as a part of evaluation of GERD/Ohara's esophagus and screening for colon cancer. Procedure performed: Esophagogastroduodenoscopy with biopsy Colonoscopy with snare polypectomy Preoperative diagnosis: GERD/Ohara's esophagus Screening for colon cancer Anesthesia: MAC Procedure: After informed consent was obtained from the patient was brought into the endoscopy unit and IV sedation was administered by anesthesia under continuous monitoring. Initially upper endoscopy was done. The Olympus GF 160 video endoscope was inserted inserted into the mouth and esophagus intubated without any difficulty and was gradually advanced into the stomach and duodenum and carefully examined. The bulb and second part of the duodenum appeared normal. The scope was then withdrawn into the stomach adequately insufflated with air and upon careful examination the antrum and body, cardia and fundus appeared normal. The scope was then withdrawn into the esophagus. The GE junction was located at 37 cm to the incisors. It appeared regular with no erythema erosions or ulcerations. He was a short segment of Ohara's esophagus extending 3-5 mm proximal to the GE junction which was biopsied. Small hiatal hernia noted. Rest of the esophagus appeared normal. Patient tolerated the procedure well. At this time the patient continued to remain sedation. Initial digital rectal examination was normal. Olympus CF 160 video colonoscope was then inserted into the rectum and gradually advanced to the cecum without any difficulty. Careful examination was performed as the scope was gradually being withdrawn. The prep was excellent. The cecum, ascending colon, transverse colon, normal. In the descending colon there was a 7 mm polyp removed by snare polypectomy. Rest of the descending colon, sigmoid colon and rectum appeared normal. Retroflexion was performed in the rectum and no lesions were noted. Patient tolerated the procedure well. Impression: 1. Upper endoscopy revealed small hiatal hernia and short segment Ohara's esophagus 2. Colonoscopy revealed a 7 mm polyp in the descending colon status post snare polypectomy and the rest of the colon appeared normal. Recommendations: Findings of this examination were discussed with the patient as well her family. She was advised to follow with the biopsy results. If the biopsy confirms the presence of Ohara's esophagus he can have a repeat upper endoscopy in 3 years. And repeat colonoscopy in 5 years.
[2022-01-03 15:02] VITALS: BP 144/89; PULSE 68; RESP 18
== END 2022-01-03 14:58 | disposition home or self-care (01) ==
LOC: ORWHC2ENDO 11:47
PROVIDERS: ATTEND Internal Medicine Gastroenterology
DX: Z12.11 Encounter for screening for malignant neoplasm of colon (principal); K63.5 Polyp of colon; K22.70 Barrett's esophagus without dysplasia; K21.9 Gastro-esophageal reflux disease without esophagitis; K44.9 Diaphragmatic hernia without obstruction or gangrene; I10 Essential (primary) hypertension; E78.5 Hyperlipidemia, unspecified; Z79.899 Other long term (current) drug therapy; Z79.890 Hormone replacement therapy; Z87.891 Personal history of nicotine dependence
CPT/HCPCS: 88305; 45385; 43239; J2001; J2704

== ENCOUNTER → 2022-01-21 | Outpatient (CLI) | payer OTHER ==
--- NOTE | 2022-01-22 09:53 | MM ---
Reason for exam: additional evaluation requested from abnormal screening. Last mammogram was performed less than 1 month ago. History: Patient is postmenopausal. Taking estrogen for 13 years beginning at age 44. Taking progesterone for 13 years beginning at age 44. Physical Findings: A clinical breast exam by your physician is recommended on an annual basis and results should be correlated with mammographic findings. MG Work Up Mamm w CAD RT Spot compression CC, spot compression MLO, and LM view(s) were taken of the right breast. Prior study comparison: January 10, 2022, bilateral MG screening mammo w CAD. November 26, 2017, bilateral MG screening mammo w CAD. There are scattered fibroglandular densities. The subareolar focal asymmetry disperses on additional views. No persisting abnormality. ASSESSMENT: Benign, BI-RAD 2 RECOMMENDATION: Return to routine screening mammogram schedule for both breasts.
== END | disposition home or self-care (01) ==
LOC: RADMAMWWP 14:52
PROVIDERS: ATTEND Family Medicine
DX: R92.8 Other abnormal and inconclusive findings on diagnostic imaging of breast (principal); Z78.0 Asymptomatic menopausal state
CPT/HCPCS: 77065

== ENCOUNTER 2022-02-24 09:29 | Observation (INO) | payer OTHER ==
[2022-02-24] MEDS ORDERED: ONDANSETRON 4 MG/2 ML VIAL IVP STA (10:06)
[2022-02-24] MEDS ORDERED: SODIUM CHLORIDE 0.9% 1,000 ML IV STA ×2 (10:06→11:14)
[2022-02-24 10:38] LABS: Basophils % (A) 0 %; Eosinophils # (A) 0.2 k/uL (0-0.7); Eosinophils % (A) 1 %; HGB 16.2 gm/dL (11.4-16.0); Lymphocytes # (A) 0.8 k/uL (1.0-4.8); Lymphocytes % (A) 4 %; MCH 32.4 pg (25.0-35.0); MCHC 34.5 g/dL (31.0-37.0); MCV 94.1 fL (80.0-100.0); Mean Platelet Volume 8.1; Monocytes # (A) 0.2 k/uL (0-1.0); Monocytes % (A) 1 %; Neutrophils # (A) 16.9 k/uL (1.3-7.7); Neutrophils % (A) 93 %; Platelet Count 410 k/uL (150-450); WBC 18.2 k/uL (3.8-10.6)
[2022-02-24 10:50] LABS: Albumin 5.9 g/dL (3.5-5.0); Calcium 11.7 mg/dL (8.4-10.2); Potassium 3.9 mmol/L (3.5-5.1); Total Bilirubin 0.8 mg/dL (0.2-1.3); Total Protein 10.1 g/dL (6.3-8.2)
--- NOTE | 2022-02-24 10:50 | ED ---
Nausea/Vomiting/Diarrhea HPI - General Chief complaint: Nausea/Vomiting/Diarrhea Stated complaint: Vomiting,Weakness Time Seen by Provider: 02/24/22 10:03 Source: patient, family, RN notes reviewed Mode of arrival: wheelchair Limitations: no limitations - History of Present Illness Initial comments: This is a 56-year-old female who presents to the emergency department for nausea, vomiting, leg cramps, and abdominal pain. Nausea and vomiting began 12 hours ago. She then developed abdominal pain, which she believes is secondary to the vomiting. She has also developed cramping in the lower extremities which she attributes to dehydration. She also reports associated epigastric pain. She had an EGD with Dr. Benjamin 3 months ago, and states that other than the chronic GERD and Sales's esophagus, they have not found a cause for her persistent epigastric pain and recurrent episodes of nausea and vomiting. Patient denies any fevers, chills, sore throat, visual changes, cough, dyspnea, chest pain, palpitations, diarrhea, constipation, dysuria, hematuria, back pain, headaches, or weakness. MD complaint: nausea, vomiting, abdominal pain Onset/Timin -: hour(s) Associated Abdominal Pain: Yes - Related Data Home Medications Medication Instructions Recorded Confirmed Estradiol 0.5 mg PO DAILY 11/17/16 02/24/22 Omeprazole 20 mg PO DAILY 11/17/16 02/24/22 Medroxyprogesterone Acetate 5 mg PO DAILY 01/09/20 02/24/22 [Provera] Atorvastatin [Lipitor] 20 mg PO HS 11/24/21 02/24/22 Ergocalciferol [Vitamin D2 (1250 1,250 mcg PO WE 11/24/21 02/24/22 Mcg = 47154 Iu)] Lisinopril-Hctz 20-12.5 mg 1 tab PO HS 11/24/21 02/24/22 [Zestoretic 20-12.5] Allergies Allergy/AdvReac Type Severity Reaction Status Date / Time No Known Allergies Allergy Verified 02/24/22 15:24 Review of Systems ROS Statement: Those systems with pertinent positive or pertinent negative responses have been documented in the HPI. ROS Other: All systems not noted in ROS Statement are negative. Past Medical History Past Medical History: GERD/Reflux, Hypertension Additional Past Medical History / Comment(s): SALES'S ESOPHAGUS, HIATAL HERNIA History of Any Multi-Drug Resistant Organisms: None Reported Past Surgical History: No Surgical Hx Reported Additional Past Surgical History / Comment(s): colonoscopy, egds Past Anesthesia/Blood Transfusion Reactions: No Reported Reaction Past Psychological History: No Psychological Hx Reported Smoking Status: Former smoker - Past Family History Father Family Medical History: Cancer Additional Family Medical History / Comment(s): MELANOMA Sister(s) Family Medical History: Deep Vein Thrombosis (DVT) Additional Family Medical History / Comment(s): BLOOD CLOT IN ARM Brother(s) Family Medical History: Liver Disease Additional Family Medical History / Comment(s): TWIN BROTHER FROM ESOPHAGEAL VARICES, CIRRHOSIS,Crohn's General Exam Limitations: no limitations General appearance: alert, in distress Head exam: Present: atraumatic, normocephalic, normal inspection Respiratory exam: Present: normal lung sounds bilaterally. Absent: respiratory distress, wheezes, rales, rhonchi, stridor Cardiovascular Exam: Present: regular rate, normal rhythm, normal heart sounds. Absent: systolic murmur, diastolic murmur, rubs, gallop, clicks Neurological exam: Present: alert, oriented X3, CN II-XII intact Psychiatric exam: Present: normal affect, normal mood Skin exam: Present: warm, dry, intact, normal color. Absent: rash Course Vital Signs 02/24/22 02/24/22 02/24/22 09:42 10:06 13:00 Temperature 98.7 F Pulse Rate 107 H 88 Respiratory 18 18 Rate Blood Pressure 96/68 160/96 O2 Sat by Pulse 98 100 Oximetry 02/24/22 16:00 Temperature Pulse Rate 96 Respiratory 16 Rate Blood Pressure 147/95 O2 Sat by Pulse 98 Oximetry Medical Decision Making - Medical Decision Making This is a 56-year-old female who presents emergency department for nausea and vomiting. Lab work reveals an elevated lactic acid of 3.5, elevated hemoglobin of 16.2, and an elevated white blood cell count of 18.2, all of which may be due to dehydration. Patient also has an TAMMY, also likely secondary to dehydration. She had a very similar presentation in the emergency department 3 months ago, and was rehydrated with 2L of normal saline and was able to be discharged. The plan is for a similar treatment mechanism, patient will be rehydrated with 2 L bolus of normal saline, as well as given Zofran for nausea and vomiting and Pepcid. After receiving fluids and the medication, she tried to eat a popsicle and began vomiting again. Given the intractable nausea and vomiting associated with the TAMMY, will plan to admit the patient for observation. This case was discussed in detail with the attending ED physician. Presentation, findings, and treatment plan discussed in detail as well. - Lab Data Result diagrams: 02/24/22 10:02/24/22 10: Lab Results 02/24/22 02/24/22 02/24/22 Range/Units 10: 10: 10: WBC 18.2 H (3.8-10.6) k/uL RBC 5.00 (3.80-5.40) m/uL Hgb 16.2 H (11.4-16.0) gm/dL Hct 47.0 H (34.0-46.0) % MCV 94.1 (80.0-100.0) fL MCH 32.4 (25.0-35.0) pg MCHC 34.5 (31.0-37.0) g/dL RDW 12.0 (11.5-15.5) % Plt Count 410 (150-450) k/uL MPV 8.1 Neutrophils % 93 % Lymphocytes % 4 % Monocytes % 1 % Eosinophils % 1 % Basophils % 0 % Neutrophils # 16.9 H (1.3-7.7) k/uL Lymphocytes # 0.8 L (1.0-4.8) k/uL Monocytes # 0.2 (0-1.0) k/uL Eosinophils # 0.2 (0-0.7) k/uL Basophils # 0.0 (0-0.2) k/uL Sodium (137-145) mmol/L Potassium (3.5-5.1) mmol/L Chloride (98-107) mmol/L Carbon Dioxide (22-30) mmol/L Anion Gap mmol/L BUN (7-17) mg/dL Creatinine (0.52-1.04) mg/dL Est GFR (CKD-EPI)AfAm (>60 ml/min/1.73 sqM) Est GFR (CKD-EPI)NonAf (>60 ml/min/1.73 sqM) Glucose (74-99) mg/dL Lactic Ac Sepsis Rflx Plasma Lactic Acid Duc (0.7-2.0) mmol/L Calcium (8.4-10.2) mg/dL Total Bilirubin (0.2-1.3) mg/dL AST (14-36) U/L ALT (4-34) U/L Alkaline Phosphatase (38-126) U/L Troponin I (0.000-0.034) ng/mL Total Protein (6.3-8.2) g/dL Albumin (3.5-5.0) g/dL Amylase (30-110) U/L Lipase (23-300) U/L Urine Color Yellow Urine Appearance Clear (Clear) Urine pH 5.5 (5.0-8.0) Ur Specific [place] 1.013 (1.001-1.035) Urine Protein Trace H (Negative) Urine Glucose (UA) Negative (Negative) Urine Ketones Negative (Negative) Urine Blood Negative (Negative) Urine Nitrite Negative (Negative) Urine Bilirubin Negative (Negative) Urine Urobilinogen <2.0 (<2.0) mg/dL Ur Leukocyte Esterase Negative (Negative) Coronavirus (PCR) (Not Detectd) Influenza Type A RNA Not Detected (Not Detectd) Influenza Type B (PCR) Not Detected (Not Detectd) 02/24/22 02/24/22 02/24/22 Range/Units 10:27 10:27 10:27 WBC (3.8-10.6) k/uL RBC (3.80-5.40) m/uL Hgb (11.4-16.0) gm/dL Hct (34.0-46.0) % MCV (80.0-100.0) fL MCH (25.0-35.0) pg MCHC (31.0-37.0) g/dL RDW (11.5-15.5) % Plt Count (150-450) k/uL MPV Neutrophils % % Lymphocytes % % Monocytes % % Eosinophils % % Basophils % % Neutrophils # (1.3-7.7) k/uL Lymphocytes # (1.0-4.8) k/uL Monocytes # (0-1.0) k/uL Eosinophils # (0-0.7) k/uL Basophils # (0-0.2) k/uL Sodium 137 (137-145) mmol/L Potassium 3.9 (3.5-5.1) mmol/L Chloride 93 L (98-107) mmol/L Carbon Dioxide 23 (22-30) mmol/L Anion Gap 21 mmol/L BUN 34 H (7-17) mg/dL Creatinine 1.78 H (0.52-1.04) mg/dL Est GFR (CKD-EPI)AfAm 36 (>60 ml/min/1.73 sqM) Est GFR (CKD-EPI)NonAf 31 (>60 ml/min/1.73 sqM) Glucose 211 H (74-99) mg/dL Lactic Ac Sepsis Rflx Plasma Lactic Acid Duc 3.5 H* (0.7-2.0) mmol/L Calcium 11.7 H (8.4-10.2) mg/dL Total Bilirubin 0.8 (0.2-1.3) mg/dL AST 40 H (14-36) U/L ALT 37 H (4-34) U/L Alkaline Phosphatase 106 (38-126) U/L Troponin I <0.012 (0.000-0.034) ng/mL Total Protein 10.1 H (6.3-8.2) g/dL Albumin 5.9 H (3.5-5.0) g/dL Amylase 97 (30-110) U/L Lipase 148 (23-300) U/L Urine Color Urine Appearance (Clear) Urine pH (5.0-8.0) Ur Specific [place] (1.001-1.035) Urine Protein (Negative) Urine Glucose (UA) (Negative) Urine Ketones (Negative) Urine Blood (Negative) Urine Nitrite (Negative) Urine Bilirubin (Negative) Urine Urobilinogen (<2.0) mg/dL Ur Leukocyte Esterase (Negative) Coronavirus (PCR) (Not Detectd) Influenza Type A RNA (Not Detectd) Influenza Type B (PCR) (Not Detectd) 02/24/22 02/24/22 02/24/22 Range/Units 11:09 12:23 13:29 WBC (3.8-10.6) k/uL RBC (3.80-5.40) m/uL Hgb (11.4-16.0) gm/dL Hct (34.0-46.0) % MCV (80.0-100.0) fL MCH (25.0-35.0) pg MCHC (31.0-37.0) g/dL RDW (11.5-15.5) % Plt Count (150-450) k/uL MPV Neutrophils % % Lymphocytes % % Monocytes % % Eosinophils % % Basophils % % Neutrophils # (1.3-7.7) k/uL Lymphocytes # (1.0-4.8) k/uL Monocytes # (0-1.0) k/uL Eosinophils # (0-0.7) k/uL Basophils # (0-0.2) k/uL Sodium (137-145) mmol/L Potassium (3.5-5.1) mmol/L Chloride (98-107) mmol/L Carbon Dioxide (22-30) mmol/L Anion Gap mmol/L BUN (7-17) mg/dL Creatinine (0.52-1.04) mg/dL Est GFR (CKD-EPI)AfAm (>60 ml/min/1.73 sqM) Est GFR (CKD-EPI)NonAf (>60 ml/min/1.73 sqM) Glucose (74-99) mg/dL Lactic Ac Sepsis Rflx Y Plasma Lactic Acid Duc 2.0 (0.7-2.0) mmol/L Calcium (8.4-10.2) mg/dL Total Bilirubin (0.2-1.3) mg/dL AST (14-36) U/L ALT (4-34) U/L Alkaline Phosphatase (38-126) U/L Troponin I (0.000-0.034) ng/mL Total Protein (6.3-8.2) g/dL Albumin (3.5-5.0) g/dL Amylase (30-110) U/L Lipase (23-300) U/L Urine Color Urine Appearance (Clear) Urine pH (5.0-8.0) Ur Specific [place] (1.001-1.035) Urine Protein (Negative) Urine Glucose (UA) (Negative) Urine Ketones (Negative) Urine Blood (Negative) Urine Nitrite (Negative) Urine Bilirubin (Negative) Urine Urobilinogen (<2.0) mg/dL Ur Leukocyte Esterase (Negative) Coronavirus (PCR) Not Detected (Not Detectd) Influenza Type A RNA (Not Detectd) Influenza Type B (PCR) (Not Detectd) Sinus tachycardia. Possible right ventricular hypertrophy. Ventricular rate 103 bpm, MN interval 134 ms, QRS 74 ms, QTC 409 ms. 02/24/22 11:20 Disposition Clinical Impression: TAMMY (acute kidney injury), Dehydration, Intractable nausea and vomiting Disposition: ADMITTED IP TO THIS HOSP
[2022-02-24] MEDS ORDERED: FAMOTIDINE 20 MG/2 ML VIAL IV STA (11:16)
[2022-02-24] MEDS ORDERED: METOCLOPRAMIDE 5 MG/ML 2 ML VIAL IVP STA (12:48)
[2022-02-24] MEDS ORDERED: KETOROLAC 15 MG/ML 1 ML VIAL IVP STA (12:52)
[2022-02-24] MEDS ORDERED: ONDANSETRON ODT 4 MG TAB PO STA (14:29)
[2022-02-24 14:45] LABS: Appearance,Urine Clear (Clear); Bilirubin,Urine Negative (Negative); Blood,Urine Negative (Negative); Color,Urine Yellow; Glucose,Urine (UA) Negative (Negative); Ketones,Urine Negative (Negative); Leukocyte Esterase,Urine Negative (Negative); Nitrite,Urine Negative (Negative); PH, Urine 5.5 (5.0-8.0); Protein,Urine Trace (Negative); Specific Gravity,Urine 1.013 (1.001-1.035); Urobilinogen,Urine <2.0 mg/dL (<2.0)
[2022-02-24] MEDS ORDERED: NALOXONE 0.4 MG/ML 1 ML VIAL IV PRN (15:58)
[2022-02-24] MEDS ORDERED: HYDROmorphone 1 MG/ML 1 ML SYRINGE IVP PRN (15:58)
[2022-02-24] MEDS ORDERED: HYDROmorphone 0.5 MG/0.5 ML SYRINGE IVP PRN (15:58)
[2022-02-24] MEDS ORDERED: ACETAMINOPHEN TAB 325 MG TAB PO PRN (15:58)
[2022-02-24] MEDS ORDERED: PROCHLORPERAZINE 5 MG TAB PO PRN (15:58)
[2022-02-24] MEDS ORDERED: ONDANSETRON 4 MG/2 ML VIAL IVP PRN ×2 (15:58→16:57)
--- NOTE | 2022-02-24 16:56 | P.HPIM ---
History of Present Illness H&P Date: 02/24/22 Chief Complaint: Nausea, vomiting 56-year-old woman with medical history of hypertension, hyperlipidemia, GERD presented with nausea, vomiting. Patient says that her nausea, vomiting started yesterday at 11 PM and has been pretty consistent. She describes the emesis as bilious without blood. She has been unable to keep anything down including fluid/water. Starting today, she started to develop abdominal pain which she thinks is secondary to the constant vomiting as well as diffuse body cramps. She denies fevers, chills, chest pain, palpitations, syncope, presyncope, abdominal pain, cough, dyspnea, constipation, diarrhea, dysuria, dyschezia, numbness/weakness of extremity is. In the emergency room, patient is afebrile, 96/68, heart rate 107, 98% on room air. CBC was remarkable for leukocytosis to 18.2, polycythemia to 16.2. Chemistries are remarkable for low chloride down to 93, acute kidney injury with a BUN/creatinine of 34/1.70. Calcium was elevated at 11.7. Liver function tests showed elevations of AST/ALT are 40/37, total protein 7.1, albumin 5.9. Lipase is 148. Initial troponin was less than 0.012. Initial lactic acid is 3.5, that improved to 2.0 after receiving 2 L of fluid boluses in the emergency room. Urinalysis showed trace protein. Covid was negative. Influenza A/B were negative. EKG showed sinus tachycardia with no ischemic changes. All Systems reviewed and pertinent positives and negatives noted in HPI, all other symptoms are negative Gen: awake, alert HEENT: normocephalic, atraumatic, good hearing acuity, moist mucous membranes Resp: good air exchange, breathing comfortably with no accessory muscle use CVS: good distal perfusion x 4, GI: soft, NTTP, ND : no SPT, no CVAT, fierro catheter not present MSK: no pitting edema, no clubbing Neuro: non-focal, moving all extremities Psych: cooperative, euthymic mood Labs and imaging reviewed as above Assessment/plan: Nausea and vomiting Acute kidney injury -Admit to observation -IV fluids -Zofran when necessary -PT consult -Advance diet as tolerated Hypertension Hyperlipidemia GERD -Home medications reviewed and reconciled Patient is full code DVT prophylaxis with heparin 3 times a day Past Medical History Past Medical History: GERD/Reflux, Hypertension Additional Past Medical History / Comment(s): SALES'S ESOPHAGUS, HIATAL HERNIA History of Any Multi-Drug Resistant Organisms: None Reported Past Surgical History: No Surgical Hx Reported Additional Past Surgical History / Comment(s): colonoscopy, egds Past Anesthesia/Blood Transfusion Reactions: No Reported Reaction Past Psychological History: No Psychological Hx Reported Smoking Status: Former smoker - Past Family History Father Family Medical History: Cancer Additional Family Medical History / Comment(s): MELANOMA Sister(s) Family Medical History: Deep Vein Thrombosis (DVT) Additional Family Medical History / Comment(s): BLOOD CLOT IN ARM Brother(s) Family Medical History: Liver Disease Additional Family Medical History / Comment(s): TWIN BROTHER FROM ESOPHAGEAL VARICES, CIRRHOSIS,Crohn's Medications and Allergies Home Medications Medication Instructions Recorded Confirmed Type Estradiol 0.5 mg PO DAILY 11/17/16 02/24/22 History Omeprazole 20 mg PO DAILY 11/17/16 02/24/22 History Medroxyprogesterone Acetate 5 mg PO DAILY 01/09/20 02/24/22 History [Provera] Atorvastatin [Lipitor] 20 mg PO HS 11/24/21 02/24/22 History Ergocalciferol [Vitamin D2 (1250 1,250 mcg PO WE 11/24/21 02/24/22 History Mcg = 77240 Iu)] Lisinopril-Hctz 20-12.5 mg 1 tab PO HS 11/24/21 02/24/22 History [Zestoretic 20-12.5] Allergies Allergy/AdvReac Type Severity Reaction Status Date / Time No Known Allergies Allergy Verified 02/24/22 15:24 Physical Exam Osteopathic Statement: *. No significant issues noted on an osteopathic structural exam other than those noted in the History and Physical/Consult. Vitals: Vital Signs Temp Pulse Resp BP Pulse Ox 02/24/22 16:00 96 16 147/95 98 02/24/22 13:00 88 18 160/96 100 02/24/22 10:06 98.7 F 02/24/22 09:42 107 H 18 96/68 98 Intake and Output 02/24/22 02/24/22 02/24/22 06:59 14:59 22:59 Other: Weight 68.039 kg Results CBC & Chem 7: 02/24/22 10:27 02/24/22 10:27 Labs: Abnormal Lab Results - Last 24 Hours (Table) 02/24/22 02/24/22 02/24/22 Range/Units 10:27 10:27 10:27 WBC 18.2 H (3.8-10.6) k/uL Hgb 16.2 H (11.4-16.0) gm/dL Hct 47.0 H (34.0-46.0) % Neutrophils # 16.9 H (1.3-7.7) k/uL Lymphocytes # 0.8 L (1.0-4.8) k/uL Chloride 93 L (98-107) mmol/L BUN 34 H (7-17) mg/dL Creatinine 1.78 H (0.52-1.04) mg/dL Glucose 211 H (74-99) mg/dL Plasma Lactic Acid Duc (0.7-2.0) mmol/L Calcium 11.7 H (8.4-10.2) mg/dL AST 40 H (14-36) U/L ALT 37 H (4-34) U/L Total Protein 10.1 H (6.3-8.2) g/dL Albumin 5.9 H (3.5-5.0) g/dL Urine Protein Trace H (Negative) 02/24/22 Range/Units 10:27 WBC (3.8-10.6) k/uL Hgb (11.4-16.0) gm/dL Hct (34.0-46.0) % Neutrophils # (1.3-7.7) k/uL Lymphocytes # (1.0-4.8) k/uL Chloride (98-107) mmol/L BUN (7-17) mg/dL Creatinine (0.52-1.04) mg/dL Glucose (74-99) mg/dL Plasma Lactic Acid Duc 3.5 H* (0.7-2.0) mmol/L Calcium (8.4-10.2) mg/dL AST (14-36) U/L ALT (4-34) U/L Total Protein (6.3-8.2) g/dL Albumin (3.5-5.0) g/dL Urine Protein (Negative)
[2022-02-24] MEDS: LACTATED RINGERS 1,000 ML IV SCH (18:16)
[2022-02-25] MEDS: PANTOPRAZOLE 40 MG/10 ML VIAL IV SCH (08:04)
[2022-02-25] MEDS: LACTATED RINGERS 1,000 ML IV SCH ×3 (09:23→20:30)
--- NOTE | 2022-02-25 13:36 | P.PN ---
Subjective Progress Note Date: 02/25/22 Hospital course: Patient is a Very pleasant 56-year-old female with a past medical history of hypertension, hyperlipidemia, GERD, and daily cannabis use. She presented to the emergency department with a chief complaint of intractable nausea and vomiting. She underwent full evaluation in the emergency department and was found to have signs of SIRS with heart rate 107, BP 96/68,WBC count of 18.2, and initial lactic acid 3.5. In addition patient was noted to have acute kidney injury with BUN 34, creatinine 1.78, and GFR of 31.patient was started on IV hydration and treated with anti-emetics and PPI for GI prophylaxis. Patient admitted under our services Physical exam: Patient was seen and fully evaluated this morning.she reports initially having some improvement in nausea and vomiting but reports this morning she has had persistent dry heaves accompanied by 3 episodes of nausea and vomiting occurring each times she tries to drink. Patient informed to maintain nothing by mouth for a short while and advance as tolerated to clear liquids, starting off slowly with just a popsicle or ice chips. patient remains on IV antiemetics with Zofran. We will continue with anti-emetics, IV hydration, GI prophylaxis with Protonix and continued close monitoring. Plan is for discharge home in the morning. Had long discussion with patient regarding need for cessation of marijuana use as this is likely be the cause of her cyclic vomiting. Vital signs reviewed and stable. General: Nontoxic, no distress and appears stated age. Derm: Skin warm and dry, normal coloration for ethnicity. Head: Atraumatic, normocephalic and symmetric. Eyes: EOMs intact, no lid lag, and anicteric sclera Mouth: no lip lesions, mucus membranes moist Cardiovascular: regular rate and rhythm with normal S1S2, no murmur, positive posterior tibial pulses bilaterally, and cap refill < 2 seconds. Lungs: Respirations even, regular, and unlabored on room air. Lungs CTA bilaterally, no rhonchi, no rales, no wheezing, and no accessory muscle usage. Abdominal: soft, nontender to palpation, no guarding, no appreciable organomegaly Ext: ROM intact. No gross muscle atrophy, no edema, no contractures Neuro: Speech clear, face symmetrical and CN II-XII grossly intact with no noted focal neuro deficits Psych: Alert and oriented to person, place, time, and situation. Appropriate and pleasant affect. Assessment and Plan of Care: Intractable nausea and vomiting Gastritis Cannabinoid Hyperemesis Syndrome Lactic acidosis Acute kidney injury Elevated liver enzymes Clear liquid diet, may advance diet as tolerated. Continue aggressive IV fluid hydration with 0.9% normal saline at 130 mL's per hour. Antiemetics with Zofran and/or Compazine as needed. Continued close monitoring with repeat labs CODE STATUS: full code DVT prophylaxis: SCDs Discussed with: patient and patient's Anticipated discharge date: tomorrow morning Anticipated discharge place: home A total of 37 minutes was spent on the care of this complex patient more than 50% of the time was spent in counseling and care coordination. Objective - Vital Signs Vital signs: Vital Signs Temp 98.7 F 02/24/22 10:06 Pulse 82 02/25/22 08:07 Resp 18 02/25/22 08:07 BP 132/80 02/25/22 08:07 Pulse Ox 98 02/25/22 08:07 Intake & Output 02/24/22 02/25/22 02/25/22 18:59 06:59 18:59 Weight 68.039 kg 68.039 kg - Labs CBC & Chem 7: 02/25/22 13:39 02/25/22 13:39 Labs: Abnormal Lab Results - Last 24 Hours (Table) 02/24/22 Range/Units 10:27 Urine Protein Trace H (Negative) Assessment and Plan Assessment: This documentation was completed by the Nurse Practitioner. History, physical examination including assessment and plan were only completed by Nurse Practitioner and was NOT evaluated by myself the attending physician including all plan of care including discharge planning and documentation. I did NOT participate or have any communication regarding the patient, including orders, imaging, diagnostic work up, consultations, communication with registered RN/poultry field service technician and discharge planning/instructions. I will be co-signing this documentation as this is a requirement per [facility] and agreement.
[2022-02-25 13:58] LABS: HCT 40.8 % (34.0-46.0); HGB 13.5 gm/dL (11.4-16.0); MCH 31.9 pg (25.0-35.0); MCHC 33.1 g/dL (31.0-37.0); MCV 96.4 fL (80.0-100.0); Mean Platelet Volume 7.6; Platelet Count 294 k/uL (150-450); RBC 4.23 m/uL (3.80-5.40); RDW 12.1 % (11.5-15.5); WBC 9.2 k/uL (3.8-10.6)
[2022-02-25 14:17] LABS: ALT 30 U/L (4-34); AST 42 U/L (14-36); African American GFR (CKD) 83 (>60 ml/min/1.73 sqM); Albumin 4.8 g/dL (3.5-5.0); Albumin/Globulin Ratio 1.6; Alkaline Phosphatase 76 U/L (38-126); Anion Gap 8 mmol/L; Blood Urea Nitrogen 24 mg/dL (7-17); Calcium 10.3 mg/dL (8.4-10.2); Carbon Dioxide 31 mmol/L (22-30); Chloride 98 mmol/L (98-107); Glucose 121 mg/dL (74-99); Magnesium 1.9 mg/dL (1.6-2.3); Non-African American GFR(CKD) 72 (>60 ml/min/1.73 sqM); Potassium 4.1 mmol/L (3.5-5.1); Sodium 137 mmol/L (137-145); Total Bilirubin 0.6 mg/dL (0.2-1.3); Total Protein 7.8 g/dL (6.3-8.2)
[2022-02-25] MEDS: SODIUM CHLORIDE 0.9% 1,000 ML IV SCH ×2 (15:23→21:49)
[2022-02-25] MEDS ORDERED: ATORVASTATIN 20 MG TAB PO SCH (21:00)
[2022-02-26] MEDS: SODIUM CHLORIDE 0.9% 1,000 ML IV SCH ×2 (05:48→08:49)
[2022-02-26 07:15] VITALS: BP 131/76; PULSE 58; RESP 16; TEMP 98.2
[2022-02-26] MEDS: PANTOPRAZOLE 40 MG/10 ML VIAL IV SCH (08:46)
[2022-02-26] MEDS: LACTATED RINGERS 1,000 ML IV SCH (08:48)
[2022-02-26 09:11] LABS: HCT 35.2 % (37.2-46.3); HGB 12.1 g/dL (12.0-15.0); MCH 32.7 pg (27.0-32.0); MCHC 34.4 g/dL (32.0-37.0); MCV 95.1 fL (80.0-97.0); Mean Platelet Volume 10.8 fL (9.5-12.2); NRBC Per 100 WBC 0 /100 WBCS (0.0-0.0); Platelet Count 247 X 10*3/uL (140-440); WBC 6.57 X 10*3/uL (4.50-10.00)
[2022-02-26 10:14] LABS: African American GFR (CKD) 111.5 (60.0-200.0); Albumin/Globulin Ratio 2.01 (1.60-3.17); Anion Gap 10.2 mmol/L (10.00-18.00); BUN/Creat Ratio 22.46 Ratio (12.00-20.00); Blood Urea Nitrogen 15.7 mg/dL (9.0-27.0); Calcium 9.5 mg/dL (8.7-10.3); Carbon Dioxide 24.7 mmol/L (20.0-27.5); Non-African American GFR(CKD) 96.2 (60.0-200.0); Potassium 3.6 mmol/L (3.5-5.5); Total Bilirubin 0.6 mg/dL (0.30-1.20)
--- NOTE | 2022-02-26 12:19 | P.DS ---
Providers Date of admission: 02/24/22 15:59 Expected date of discharge: 02/26/22 Attending physician: Denzel Huber MD Primary care physician: Marian Frias [facility] Course: Discharge Diagnosis: Intractable nausea and vomiting Gastritis Cannabinoid Hyperemesis Syndrome Lactic acidosis Acute kidney injury, resolved Elevated liver enzymes, resolved Hypertension Hyperlipidemia GERD Daily cannabis use/abuse Hospital Course: Patient is a Very pleasant 56-year-old female with a past medical history of hypertension, hyperlipidemia, GERD, and daily cannabis use. She presented to the emergency department with a chief complaint of intractable nausea and vomiting. She underwent full evaluation in the emergency department and was found to have signs of SIRS with heart rate 107, BP 96/68,WBC count of 18.2, and initial lactic acid 3.5. In addition patient was noted to have acute kidney injury with BUN 34, creatinine 1.78, and GFR of 31.patient was started on IV hydration and treated with anti-emetics and PPI for GI prophylaxis. Patient admitted under our services. She was placed on clear liquid diet with aggressive IV fluid hydration with 0.9% normal saline at 130 mL's per hour. Patient was provided with Antiemetics with Zofran and/or Compazine as needed. Patient's condition improved daily. Diet was advanced as she tolerated. Morning labs reviewed and stable. Vital signs unremarkable. Patient reports full cessation of previously reported abdominal pain, nausea, and vomiting. Patient educated on the importance of cessation of all cannabis use. Patient medically stable for discharge home at this time. Patient follows with Dr. Benjamin outpatient for GERD, patient to continue to follow with GI as needed and recommended to follow with PCP in 1-2 days. Physical exam: Vital signs reviewed and stable. General: Nontoxic, no distress and appears stated age. Derm: Skin warm and dry, normal coloration for ethnicity. Head: Atraumatic, normocephalic and symmetric. Eyes: EOMs intact, no lid lag, and anicteric sclera Mouth: no lip lesions, mucus membranes moist Cardiovascular: regular rate and rhythm with normal S1S2, no murmur, positive posterior tibial pulses bilaterally, and cap refill < 2 seconds. Lungs: Respirations even, regular, and unlabored on room air. Lungs CTA bilaterally, no rhonchi, no rales, no wheezing, and no accessory muscle usage. Abdominal: soft, nontender to palpation, no guarding, no appreciable organomegaly Ext: ROM intact. No gross muscle atrophy, no edema, no contractures Neuro: Speech clear, face symmetrical and CN II-XII grossly intact with no noted focal neuro deficits Psych: Alert and oriented to person, place, time, and situation. Appropriate and pleasant affect. A total of 31 minutes of time were spent preparing this complex discharge summary. Pt was discharged on 02/26/22 at 12:18 PM Patient Condition at Discharge: Stable Plan - Discharge Summary Discharge Rx Participant: No New Discharge Prescriptions: New Ondansetron Odt [Zofran ODT] 8 mg PO Q8HR PRN #24 tab PRN Reason: Nausea And Vomiting Continue Estradiol 0.5 mg PO DAILY Omeprazole 20 mg PO DAILY Medroxyprogesterone Acetate [Provera] 5 mg PO DAILY Ergocalciferol [Vitamin D2 (1250 Mcg = 30048 Iu)] 1,250 mcg PO WE Lisinopril-Hctz 20-12.5 mg [Zestoretic 20-12.5] 1 tab PO HS Atorvastatin [Lipitor] 20 mg PO HS Discharge Medication List Estradiol 0.5 mg PO DAILY 11/17/16 [History] Omeprazole 20 mg PO DAILY 11/17/16 [History] Medroxyprogesterone Acetate [Provera] 5 mg PO DAILY 01/09/20 [History] Atorvastatin [Lipitor] 20 mg PO HS 11/24/21 [History] Ergocalciferol [Vitamin D2 (1250 Mcg = 76603 Iu)] 1,250 mcg PO WE 11/24/21 [History] Lisinopril-Hctz 20-12.5 mg [Zestoretic 20-12.5] 1 tab PO HS 11/24/21 [History] Ondansetron Odt [Zofran ODT] 8 mg PO Q8HR PRN #24 tab 02/26/22 [Rx] Follow up Appointment(s)/Referral(s): Marian Frias III, MD [Primary Care Provider] - 1-2 days Activity/Diet/Wound Care/Special Instructions: Activity: As tolerated. Take breaks as needed. Diet: Heart healthy and carb consistent diet. Avoid salts, or foods with hidden salts such as canned or boxed foods and frozen dinners. Extra salt makes your heart work harder and traps the fluid in your body for longer. Special Instructions: Take all of your medications as directed and remember to keep all of your doctor's appointments and follow-up as needed. Strongly encourage cessation of cannabis use secondary to concerns of cannabinoid hyperemesis syndrome. Thank you for allowing us to participate in your care, it was truly a pleasure having you for our patient!!! Discharge Disposition: HOME SELF-CARE
== END 2022-02-26 13:40 | disposition home or self-care (01) ==
LOC: EC 09:29 → 6NMEDSUR 15:59
PROVIDERS: ADMIT Internal Medicine; ATTEND Internal Medicine
DX: R11.2 Nausea with vomiting, unspecified (principal); K29.70 Gastritis, unspecified, without bleeding; F12.10 Cannabis abuse, uncomplicated; R53.1 Weakness; Z20.822 Contact with and (suspected) exposure to COVID-19; K44.9 Diaphragmatic hernia without obstruction or gangrene; D72.829 Elevated white blood cell count, unspecified; R74.8 Abnormal levels of other serum enzymes; E78.5 Hyperlipidemia, unspecified; E86.0 Dehydration; E87.2 Acidosis; R00.0 Tachycardia, unspecified; D75.1 Secondary polycythemia; I10 Essential (primary) hypertension; K21.9 Gastro-esophageal reflux disease without esophagitis; K22.70 Barrett's esophagus without dysplasia; N17.9 Acute kidney failure, unspecified; Z79.899 Other long term (current) drug therapy; Z87.891 Personal history of nicotine dependence; Z71.3 Dietary counseling and surveillance; Z71.51 Drug abuse counseling and surveillance of drug abuser; Z80.8 Family history of malignant neoplasm of other organs or systems; Z83.79 Family history of other diseases of the digestive system; Z82.49 Family history of ischemic heart disease and other diseases of the circulatory system
CPT/HCPCS: 99285; 96374; 96375 ×2; 96361 ×2; 96376 ×2; 36415; 93005; 97162; 80053 ×3; 82150; 83605; 83690; 83735 ×2; 84484; 85025; 85027 ×2; 81003; 87502; 87635; G0378 ×3; S0183; J2765; J2405 ×2; J1170; J1885; C9113 ×2

== ENCOUNTER → 2025-01-13 | Day surgery (SDC) | payer OTHER ==
[2025-01-11 09:09] VITALS: BMI 27.1
[~2025-01-13] MED LIST changes: -LACTATED RINGERS 1,000 ML IV SCH; +LIDOCAINE 2% (PF) 20 MG/ML 5 ML VIAL ONE; +PROPOFOL 10 MG/ML 20 ML VIAL IV ONE
[2025-01-13] MEDS: IV FLUID CONTINUATION 1,000 ML IV ONE (10:27)
[2025-01-13 10:37] VITALS: RESP 16; TEMP 97.5
[2025-01-13] MEDS: LACTATED RINGERS 1,000 ML IV SCH (10:38)
--- NOTE | 2025-01-13 11:40 | P.PCN ---
Date of Procedure: 01/13/25 Procedure(s) Performed: BRIEF HISTORY: Patient is a 59-year-old, pleasant, white female scheduled for Endoscopy as a part evaluation of longstanding history of GERD/Ohara's esophagus. PROCEDURE PERFORMED: Esophagogastroduodenoscopy with biopsy. PREOPERATIVE DIAGNOSIS: GERD/Ohara's esophagus. IV sedation per anesthesia. PROCEDURE: After informed consent was obtained, the patient was brought into the endoscopy unit. IV sedation was administered by Anesthesia under continuous monitoring. Initially the Olympus GIF-140 video endoscope was inserted into the mouth. Esophagus intubated without any difficulty. It was gradually advanced into the stomach and duodenum and carefully examined. The bulb and the second part of the duodenum appeared normal. The scope at this time was withdrawn to the stomach, adequately insufflated with air, and upon careful examination, mucosa of the antrum, body, cardia and the fundus appeared normal. The scope was then withdrawn into the esophagus. Small hiatal hernia noted. The GE junction was located at 39 cm from the incisors. There were 2 tongues of Ohara's appearing mucosa extending 3 mm proximal to the GE junction that was biopsied. The rest of the esophagus appeared normal. There were no erosions or ulcerations seen and the patient tolerated the procedure well. IMPRESSION: 1. Small hiatal hernia. 2. 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 RECOMMENDATIONS: The findings of this examination were discussed with the patient as well as her family. She was advised to follow-up with the biopsy results. Recommended repeat EGD in 3 years. Continue with Protonix 40 mg daily and follow antireflux measures..
[2025-01-13 12:24] VITALS: BP 136/84; PULSE 57
== END ==
LOC: ORWHC2ENDO 09:56
PROVIDERS: ATTEND Internal Medicine Gastroenterology
DX: K22.70 Barrett's esophagus without dysplasia (principal); K21.9 Gastro-esophageal reflux disease without esophagitis; K44.9 Diaphragmatic hernia without obstruction or gangrene; I10 Essential (primary) hypertension; E78.5 Hyperlipidemia, unspecified; Z79.899 Other long term (current) drug therapy; Z87.891 Personal history of nicotine dependence
CPT/HCPCS: 43239; 88305; J2704; J2003